=== PATIENT | female | born 1945 | race Caucasian/White ===

== ENCOUNTER 2016-03-28 10:30 | Outpatient (CLI) | payer MEDICARE | END 2016-03-28 10:31 | disposition home or self-care (01) | DX: Z12.11 Encounter for screening for malignant neoplasm of colon (principal) ==

== ENCOUNTER 2016-04-10 13:56 | Outpatient (CLI) | payer MEDICARE | END 2016-04-10 13:57 | disposition home or self-care (01) | DX: Z12.31 Encounter for screening mammogram for malignant neoplasm of breast (principal) ==

== ENCOUNTER 2016-04-10 13:57 | Outpatient (CLI) | payer MEDICARE | END 2016-04-10 13:58 | disposition home or self-care (01) | DX: M85.89 Other specified disorders of bone density and structure, multiple sites (principal) ==

== ENCOUNTER 2017-04-19 08:00 | Outpatient (CLI) | payer MEDICARE | END 2017-04-19 23:59 | disposition home or self-care (01) | LOC: LAB.R 08:00 | PROVIDERS: ATTEND Internal Medicine | DX: Z00.00 Encounter for general adult medical examination without abnormal findings (principal); Z12.11 Encounter for screening for malignant neoplasm of colon | CPT/HCPCS: 82270; 83630 ==

== ENCOUNTER 2018-05-12 14:11 | Outpatient (CLI) | payer MEDICARE | END 2018-05-12 14:12 | disposition home or self-care (01) | LOC: LAB.F 14:11 | PROVIDERS: ATTEND Internal Medicine | DX: Z12.11 Encounter for screening for malignant neoplasm of colon (principal) | CPT/HCPCS: 82270 ==

== ENCOUNTER 2018-05-27 14:49 | Outpatient (CLI) | payer MEDICARE ==
[2018-05-27 18:01] LABS: CHOL/HDL RATIO 3.3 (<4.4); CHOLESTEROL 227 mg/dL; HDL CHOLESTEROL 68 mg/dL; LDL CHOLESTEROL,CALCULATED 120 mg/dL; LDL/HDL RATIO 1.8 (<4.4); VLDL CHOLESTEROL 39 mg/dL
== END 2018-05-27 14:50 | disposition home or self-care (01) ==
LOC: LAB.F 14:49
PROVIDERS: ATTEND Internal Medicine
DX: Z13.6 Encounter for screening for cardiovascular disorders (principal)
CPT/HCPCS: 36415; 80061; 83721

== ENCOUNTER 2018-06-20 16:35 | Outpatient (CLI) | payer MEDICARE, MEDICAID ==
--- NOTE | 2018-06-24 10:40 | Mammography Report ---
Reason: OTHER SCREENING MAMMOGRAM Procedure Date: 06/20/2018 Accession Number: [id number] / [id number] Procedure: DANIEL - Screening Mammo w/Dmitri CPT Code: FULL RESULT: EXAM: Screening Mammo w/Dmitri DATE: 06/20/2018 5:05 PM CLINICAL HISTORY: TECHNIQUE: (B) - Bilateral CC and MLO views were obtained. In addition, bilateral exaggerated CC views were obtained. COMPARISON: 04/10/2016, 03/23/2014 PARENCHYMAL PATTERN: (A) - The breasts demonstrate scattered fibroglandular densities bilaterally. FINDINGS: There are no suspicious masses, calcifications, or areas of distortion. IMPRESSION: Negative examination. BI-RADS category 1. RECOMMENDATION: (ANNUAL) - Recommend routine annual screening mammography. BI-RADS CATEGORY: (1) - Negative. STANDARD QUALIFYING STATEMENTS: 1. This examination was not reviewed with the aid of Computer-Aided Detection (CAD). 2. A negative or benign imaging report should not preclude biopsy if clinically suspicious findings are present. 3. Dense breasts may obscure an underlying neoplasm. 4. This examination was reviewed with the aid of 3D breast imaging (tomosynthesis).
== END 2018-06-20 16:36 | disposition home or self-care (01) ==
LOC: DI 16:35
PROVIDERS: ATTEND Internal Medicine
DX: Z12.31 Encounter for screening mammogram for malignant neoplasm of breast (principal)
CPT/HCPCS: 77063; 77067

== ENCOUNTER 2019-05-23 10:59 | Outpatient (CLI) | payer MEDICARE, MEDICAID ==
--- NOTE | 2019-05-25 17:16 | CT Report ---
Reason: TOBACCO USE Procedure Date: 05/23/2019 Accession Number: [id number] / [id number] Procedure: CT - Low Dose Lung Cancer Screen CPT Code: Final Report FULL RESULT: EXAM CT LUNG SCREEN EXAM DATE: 05/23/2019 11:18 AM. HISTORY: 73-year-old patient with smoking history. COMPARISON: None. TECHNIQUE: CT examination of the entire thorax without contrast was performed using low-dose technique. Thin section coronal, axial, sagittal and MIP axial images were obtained. In accordance with CT protocol optimization, one or more of the following dose reduction techniques were utilized for this exam: automated exposure control, adjustment of mA and/or KV based on patient size, or use of iterative reconstructive technique. FINDINGS: Nodules: Right upper lobe: None. Right middle lobe: None. Right lower lobe: None. Left upper lobe: None. Left lower lobe: 1.2 cm vertical by 1 cm AP by 1.2 cm transverse spiculated left lower lobe nodule. Emphysema: Mild centrilobular. Pleura: Unremarkable. Aorta: Unremarkable. Mediastinum: Unremarkable. Coronary calcifications: Small Other pulmonary findings: None. Other extrapulmonary findings: Degenerative change in the spine IMPRESSION: Lung-RADS ASSESSMENT CATEGORY: 4X very suspicious Probability of malignancy: >15% RECOMMENDATION: PET/CT or tissue sampling Recommended follow up based on ACR Lung-RADS Version 1.1 Guidelines. [facility]
== END 2019-05-23 11:00 | disposition home or self-care (01) ==
LOC: DI 10:59
PROVIDERS: ATTEND Internal Medicine
DX: Z12.2 Encounter for screening for malignant neoplasm of respiratory organs (principal); R91.1 Solitary pulmonary nodule; J43.2 Centrilobular emphysema; Z87.891 Personal history of nicotine dependence

== ENCOUNTER 2020-05-27 08:00 | Outpatient (CLI) | payer MEDICARE, MEDICAID | END 2020-05-27 23:59 | disposition home or self-care (01) | LOC: LAB.R 08:00 | PROVIDERS: ATTEND Internal Medicine | DX: Z12.11 Encounter for screening for malignant neoplasm of colon (principal) | CPT/HCPCS: 82270 ==

== ENCOUNTER 2020-09-05 09:28 | Outpatient (CLI) | payer MEDICARE, MEDICAID ==
--- NOTE | 2020-09-05 14:01 | CT Report ---
PROCEDURE: CHEST WO INDICATIONS: LEFT LOWER LOBE LUNG CA TECHNIQUE: Noncontrast 5 mm thick sections acquired from the pulmonary apices to the posterior costophrenic angl es. 7 mm thick coronal and sagittal MIP reformats were then acquired. For radiation dose reduction, the following was used: automated exposure control, adjustment of mA and/or kV according to patient size. COMPARISON: None. FINDINGS: Image quality: Excellent. Lungs and pleura: No acute air space opacities. The lung parenchyma demonstrates mild to moderate c entrilobular emphysema consistent with a long-standing smoking history. There is blunting of the post erior left costophrenic sulcus in this patient with reported prior left lower lobe lung carcinoma. Th is likely reflects prior partial pneumonectomy involving the left lower lobe. No pleural effusions or pneumothorax. Central and peripheral airways are patent and normal in caliber. Mediastinum: Heart size is normal. No pericardial effusion. No mediastinal adenopathy by size crit eria. Thoracic aorta and central pulmonary arteries are normal in size. Esophagus is normal in kateryna kwasi. No hiatal hernia. Bones and chest wall: No suspicious bony lesions. No vertebral body compression fractures. No axil regina or supraclavicular adenopathy by size criteria. The thyroid is normal in size and there are no incidental findings. Abdomen: Visualized upper abdominal solid organs and bowel loops appear normal in the absence of con trast. IMPRESSION: 1. The clinical history indicates prior left lower lung cancer. Presumably this has been resected. Th ere is what is considered postoperative scarring at the left lung base posteriorly and no recurrent p leural or lung parenchymal mass in this area is found. 2. Centrilobular emphysema, presumed long-standing smoking history. It may be warranted to enroll the patient in a yearly screening program to assist in detecting future development of lung carcinoma. 3. Presumably there are comparison CT scans from elsewhere. It would be beneficial to obtain a copy o f those examinations and add them to the patient's PACS record for future imaging reference. Reviewed by: Renato Payan MD on 09/05/2020 1:59 PM PDT Approved by: Renato Payan MD on 09/05/2020 1:59 PM PDT Station ID: [id number]
== END 2020-09-05 09:29 | disposition home or self-care (01) ==
LOC: DI 09:28
PROVIDERS: ATTEND Physician Assistant
DX: J43.2 Centrilobular emphysema (principal); Z85.118 Personal history of other malignant neoplasm of bronchus and lung